=== PATIENT | female | born 1950 | race Caucasian/White ===

== ENCOUNTER 2021-11-23 19:54 | Emergency (ER) | payer OTHER ==
[~2021-11-23 19:54] MED LIST: 8 HOUR650 MG PO; COZAAR50 MG PO; CYMBALTA 30MG C30 MG PO; PROTONIX 40MG T40 MG PO; VITAMIN B125000 MCG IM/IVP; VITAMIN D31000 UNIT PO; XANAX0.5 MG PO
[2021-11-23 20:23] LABS: BASOPHIL 0.5 % (0-2); EOSINOPHIL 2.9 % (0-7); HCT 37.5 % (37.0-47.0); HGB 12.2 g/dl (12.5-16.0); LYMPHOCYTE 19.9 % (15-48); MCHC 32.5 g/dL (32.0-36.0); MCV 92.1 fL (78.0-100.0); MONOCYTE 8.5 % (0-12); MPV 10.5 fL (6.0-9.5); NEUTROPHIL 67.9 % (41-80); NRBC 0; PLT 232 K/uL (150-400); RBC 4.07 M/uL (4.20-5.40); RDW 12.9 % (11.5-14.0); WBC 7.6 K/uL (4.0-10.5)
[2021-11-23 20:52] LABS: CORONAVIRUS 2019 SARS-COV-2 NEGATIVE (NEGATIVE); INFLUENZA A NAA NEGATIVE (NEGATIVE)
[2021-11-23 21:08] LABS: CREATININE 0.73 mg/dL (0.51-0.95)
[2021-11-23 21:09] LABS: ALBUMIN 3.4 g/dL (3.4-5.0); BILIRUBIN - TOTAL 0.5 mg/dL (0.2-1.0); GLOBULIN (CALCULATION) 3.4 g/dL; POTASSIUM 4.5 mmol/L (3.5-5.1); TOTAL PROTEIN 6.8 g/dL (6.4-8.2)
[2021-11-24 00:46] LABS: BILIRUBIN NEGATIVE (NEGATIVE); BLOOD NEGATIVE Ery/uL (NEGATIVE); CLARITY CLEAR (CLEAR); COLOR YELLOW (YELLOW); GLUCOSE (U) NORMAL (NORMAL); LEUKOCYTES NEGATIVE Leu/uL (NEGATIVE); NITRITE NEGATIVE (NEGATIVE); PROTEIN NEGATIVE (NEGATIVE); SPECIFIC GRAVITY <=1.005 (1.001-1.030); UROBILINOGEN 0.2 mg/dL (0.2-1.0)
== END 2021-11-24 01:56 | disposition home or self-care (01) ==
LOC: FER 19:54
PROVIDERS: Emergency Medicine
DX: R06.02 Shortness of breath (principal); R05.9 Cough, unspecified; I10 Essential (primary) hypertension; E11.9 Type 2 diabetes mellitus without complications; Z20.822 Contact with and (suspected) exposure to COVID-19; Z88.0 Allergy status to penicillin
CPT/HCPCS: 36415; 71045; 71275; 80053; 81003; 83880; 84145; 84484; 85025; 85379; 93005; 93971; 94760; J0692; J7030; Q9967; U0002

== ENCOUNTER 2022-01-08 19:19 | Emergency (ER) | payer OTHER ==
[2022-01-08 20:37] LABS: BASOPHIL 0.2 % (0-2); EOSINOPHIL 0.7 % (0-7); HCT 42.4 % (37.0-47.0); HGB 13.4 g/dl (12.5-16.0); LYMPHOCYTE 9.7 % (15-48); MCH 28.8 pg (25.0-31.0); MCHC 31.6 g/dL (32.0-36.0); MONOCYTE 15.7 % (0-12); MPV 10.1 fL (6.0-9.5); NEUTROPHIL 73.5 % (41-80); NRBC 0; PLT 178 K/uL (150-400); RBC 4.66 M/uL (4.20-5.40); WBC 4.1 K/uL (4.0-10.5)
[2022-01-08 20:41] LABS: INR 0.99 (0.9-1.2); PROTHROMBIN TIME 12.8 SECONDS (11.9-13.9)
[2022-01-08 20:49] LABS: ALBUMIN 3.7 g/dL (3.4-5.0); BILIRUBIN - TOTAL 0.6 mg/dL (0.2-1.0); CREATININE 0.62 mg/dL (0.51-0.95); POTASSIUM 3.7 mmol/L (3.5-5.1); TOTAL PROTEIN 6.7 g/dL (6.4-8.2)
[2022-01-08 21:20] LABS: INFLUENZA A NAA NEGATIVE (NEGATIVE)
[2022-01-08 21:22] LABS: CORONAVIRUS 2019 SARS-COV-2 POSITIVE (NEGATIVE)
[2022-01-08 22:27] LABS: BILIRUBIN NEGATIVE (NEGATIVE); BLOOD NEGATIVE Ery/uL (NEGATIVE); CLARITY CLEAR (CLEAR); COLOR YELLOW (YELLOW); GLUCOSE (U) NORMAL (NORMAL); LEUKOCYTES NEGATIVE Leu/uL (NEGATIVE); NITRITE NEGATIVE (NEGATIVE); PROTEIN NEGATIVE (NEGATIVE); SPECIFIC GRAVITY <=1.005 (1.001-1.030); UROBILINOGEN 0.2 mg/dL (0.2-1.0)
[2022-01-08] MEDS ORDERED: PAXLOVID 150-11 EACH PO (23:01)
[2022-01-08] MEDS ORDERED: PREDNISONE 20MG20 MG PO (23:01)
[2022-01-08] MEDS ORDERED: ONDANSETRON ODT4 MG PO (23:04)
== END 2022-01-09 00:30 | disposition home or self-care (01) ==
LOC: FER 19:19
PROVIDERS: Internal Medicine
DX: U07.1 COVID-19 (principal); I10 Essential (primary) hypertension; Z88.0 Allergy status to penicillin; Z88.6 Allergy status to analgesic agent
CPT/HCPCS: 36415; 71250; 80053; 81003; 83880; 84145; 85025; 85610; 85730; J1100; J7120; U0002